=== PATIENT | male | born 1950 | race Caucasian/White ===

== ENCOUNTER 2019-05-27 19:27 | Emergency (ER) | payer MEDICARE ==
[2019-05-27] MEDS ORDERED: Ibuprofen 800 MG TAB ONE (19:59)
[2019-05-27] MEDS ORDERED: HYDROcodone/Acetaminophen 10/325 mg Tablet ONE (19:59)
[2019-05-27] MEDS ORDERED: Carvedilol 12.5 MG TAB ONE (20:08)
[2019-05-27] MEDS ORDERED: Carvedilol 25 MG TAB PO SCH (20:15)
--- NOTE | 2019-05-28 07:18 | RAD ---
RIGHT ANKLE 3 VIEWS: Date: 05/27/19 There is significant soft tissue swelling around the ankle. There is a tiny odalis of bone near the ti p of the medial malleolus that could be a small cortical avulsion. A major fracture is not seen, chino sneha. Bony spurring is seen around the joint. There is a large calcaneal spur. IMPRESSION: Soft tissue injury and possible small cortical avulsion from the medial malleolus. POS: HOME
== END 2019-05-27 20:18 | disposition home or self-care (01) ==
LOC: BURERS 19:27
DX: S82.51XA Displaced fracture of medial malleolus of right tibia, initial encounter for closed fracture (principal); S93.401A Sprain of unspecified ligament of right ankle, initial encounter; F17.220 Nicotine dependence, chewing tobacco, uncomplicated; Z79.891 Long term (current) use of opiate analgesic; Z79.899 Other long term (current) drug therapy; V29.9XXA Motorcycle rider (driver) (passenger) injured in unspecified traffic accident, initial encounter